=== PATIENT | female | born 2000 | race Caucasian/White ===

== ENCOUNTER 2019-03-17 08:42 | Emergency (ER) | payer OTHER ==
[2019-03-17 09:34] LABS: #Basophils 0.1 thou/uL (0.0-0.2); #Eosinphils 0.2 thou/uL (0.0-0.7); #Lymphocytes 2.5 thou/uL (1.20-3.40); #Monocytes 0.3 thou/uL (0.11-0.59); #Neutrophils 5.3 thou/uL (1.40-6.50); %Basophils 0.9 % (0.0-1.0); %Lymphocytes 29.5 % (28.0-48.0); %Neutrophils 62.6 % (31.0-61.0); Hemoglobin 12.8 g/dL (12.0-16.0); Mean Corpuscular HGB CONC 33.7 g/dL (32.0-36.0); Mean Corpuscular Hemoglobin 29.5 pg (25.0-35.0); Mean Corpuscular Volume 87.5 fL (78.0-98.0); Mean Platelet Volume 7.2 fL (7.4-10.4); Platelet Count 344 thou/uL (130-400); Red Blood Cell (RBC) Count 4.34 mill/uL (4.00-5.20); White Blood Cell (WBC) Count 8.4 thou/uL (4.8-10.8)
[2019-03-17 09:55] LABS: ALT (SGPT) 10 U/L (8-55); AST (SGOT) 14 U/L (5-34); Albumin 4.2 g/dL (3.5-5.0); Alkaline Phosphatase 45 U/L (40-150); Anion Gap 11 mmol/L (10-20); BUN (Urea Nitrogen) 10 mg/dL (7.0-18.7); Bilirubin, Total 0.5 mg/dL (0.2-1.2); Calc. Creatinine Clearance 0 mL/min (70-130); Calcium 9.4 mg/dL (7.8-10.44); Carbon Dioxide 24 mmol/L (22-29); Chloride 105 mmol/L (98-107); Estimated GFR-MDRD Greater than 90; Globulin 3.4 g/dL (2.4-3.5); Glucose 90 mg/dL (70-105); Lipase 10 U/L (8-78); Potassium 4.2 mmol/L (3.5-5.1); Protein, Total 7.6 g/dL (6.0-8.3); Sodium 136 mmol/L (136-145)
[2019-03-17 11:34] LABS: Bilirubin Negative (Negative); Blood, Urine Negative (Negative); Clarity TURBID (Clear); Glucose, Urine (Dipstick) Negative (Negative); Leukocyte Trace (Negative); Nitrite Negative (Negative); Protein, Urine (Dipstick) Negative (Neg-Trace); Specific Gravity, Urine 1.014 (1.002-1.036); Urobilinogen 0.2 mg/dL (0.2-1.0); pH, Urine 7.5 (5.0-9.0)
[2019-03-17 11:37] LABS: Pathc Cast-AUWi Flag 2.04 (0-2.49)
[2019-03-17 11:52] LABS: Bacteria/HPF Rare-Few HPF (None Seen); Crystals/HPF 2+ AMORPH PHOS HPF (Negative); Hyaline Casts/LPF 0-3 HYALINE CAST LPF (0-3 Hyaline); RBC/HPF 0-3 HPF (0-3)
[2019-03-17] MEDS ORDERED: Ondansetron PF 4 MG/2 ML Vial ONE (12:24)
== END 2019-03-17 12:26 | disposition home or self-care (01) ==
LOC: ERS 08:42
DX: O21.9 Vomiting of pregnancy, unspecified (principal); O23.41 Unspecified infection of urinary tract in pregnancy, first trimester; O99.511 Diseases of the respiratory system complicating pregnancy, first trimester; J45.909 Unspecified asthma, uncomplicated; O99.341 Other mental disorders complicating pregnancy, first trimester; F90.9 Attention-deficit hyperactivity disorder, unspecified type; Z3A.12 12 weeks gestation of pregnancy
CPT/HCPCS: 80053; 81003; 81015; 83690; 85025; 87086; 96360; 96361; J2405

== ENCOUNTER 2019-07-09 02:49 | Day surgery (SDC) | payer OTHER ==
[2019-07-09 03:12] VITALS: BMI 25.2
[2019-07-09] MEDS ORDERED: hydrALAZINE 20 MG/ML VIAL SLOW IVP PRN (03:37)
--- NOTE | 2019-07-11 12:50 | PRG ---
DATE OF SERVICE: OB ENCOUNTER: PRIMARY OB: Ezekiel Worrell MD CHIEF COMPLAINT: Vaginal bleeding and pelvic pressure. HISTORY OF PRESENT ILLNESS: The patient is a 18-year-old G2, P1 female with an intrauterine at 29 weeks and 2 days, who is presenting to Labor and Delivery after having intercourse. She reports that she is having some light bleeding and pelvic pressure, which prompted her to come for evaluation and concern. The patient reports she has had a couple of contractions also, one just that she got here, lasting about 30 seconds. The patient denies any other complications with this . Her last ended in a term delivery requiring induction of labor. The patient denies any other trauma or fall. She denies any recent illness, fever, cough, headache, chest pain or shortness of breath. She reports some nausea. Denies vomiting. Denies diarrhea or constipation. Denies any new rashes, hip problems, knee problems or muscle weakness. Denies any change in discharge other than a slight spotting. Denies urinary urgency or frequency. PAST MEDICAL HISTORY: Asthma and ADHD. PAST SURGICAL HISTORY: [place] teeth extraction. SOCIAL HISTORY: Denies drug, alcohol or tobacco use. ALLERGIES: SULFA DRUGS. CURRENT MEDICATIONS: vitamins. OB LABS: Unavailable at time of dictation. REVIEW OF SYSTEMS: Per HPI. PHYSICAL EXAMINATION: VITAL SIGNS: Blood pressure 118/67, heart rate 98, and respiratory rate 18. GENERAL: She appears to be in no acute distress. She is alert, oriented, cooperative, and pleasant to interact with. HEAD: Normocephalic and atraumatic. LUNGS: Clear to auscultation bilaterally. HEART: Regular rate and rhythm. ABDOMEN: Gravid and soft. EXTREMITIES: Nontender and nonedematous. : Vulva is without masses, lesions or erythema. Vestibular region, she has what appears to be very small laceration of the urethra with a very small blood clot present and hemostatic. Vaginal canal on sterile speculum exam has some minimal blood-stained fluid. Cervix is visibly closed and full without any visible lesions or bleeding. heart tracing shows the fetus in the 130s with moderate long-term variability, positive 15 x 15 accelerations. Tocometer shows some irritability, but no contraction pattern. ASSESSMENT AND PLAN: The patient is a 18-year-old, G2, P1 female with an intrauterine at 29 weeks and 2 days, presenting after intercourse to Labor and Delivery with spotting and a couple of contractions, concerned for complications. There is no evidence of abruption or labor or other concerning complications at this time. The patient has been given reassurance and is being discharged to home. The patient has an appointment with her primary OB next week. Job ID: [id number]
== END 2019-07-09 04:05 | disposition home or self-care (01) ==
LOC: L&D/OP 02:49
PROVIDERS: ATTEND Obstetrics & Gynecology
DX: O26.853 Spotting complicating pregnancy, third trimester (principal); O47.03 False labor before 37 completed weeks of gestation, third trimester; O99.513 Diseases of the respiratory system complicating pregnancy, third trimester; J45.909 Unspecified asthma, uncomplicated; O99.343 Other mental disorders complicating pregnancy, third trimester; F90.9 Attention-deficit hyperactivity disorder, unspecified type; Z88.2 Allergy status to sulfonamides; Z3A.29 29 weeks gestation of pregnancy
CPT/HCPCS: 99282

== ENCOUNTER 2019-08-28 20:03 | Day surgery (SDC) | payer OTHER ==
[2019-08-28 20:44] VITALS: BP 108/60; TEMP 97.9; BMI 25.4
[2019-08-28] MEDS ORDERED: hydrALAZINE 20 MG/ML VIAL SLOW IVP PRN (21:21)
--- NOTE | 2019-08-28 21:32 | PDOC.LDHP ---
Labor and Delivery H&P Chief complaint: other (Dizziness upon standing) HPI: Patient here for dizziness Patient of Anaid Seen at Bedside at 2130 19 yo at 36 weeks 3 days here for dizziness, during work as a packaging clerk. No LOC, no VB, no LOF, good FM. few irregular CTX yesterday, none now. Review of Systems: complete and as per HPI Current gestational age (weeks): 36 (3) Dating criteria: last menstrual period Grav: 2 Para: 1 OB History Details: 2017 Current complications: none Abnormal US findings: Yes Current medications: pre- vitamins Previous surgical history: none Allergies/Adverse Reactions: Allergies Allergy/AdvReac Type Severity Reaction Status Date / Time Sulfa (Sulfonamide Allergy Verified 07/09/19 03:08 Antibiotics) Social history: none - Physical Exam Vital signs reviewed and normal: yes (108/68 97.9 80 afebrile) General: NAD Heart: RRR Lungs: CTAB Abdomen: gravid Extremeties: no edema FHT: category 1 [place] contractions every: none; irritability - Vaginal Exam cm dilated: 2 Effacement: 25% Station: -3 - Assessment Vasovagal episode by HX due to prolonged standing. No clinical evidence PTL. EGA : 36 weeks. - Plan Plan: observation in L&D (CBC, CMP ordered for eval, FHT is reactive, no evidence acute maternal- issue.)
[2019-08-28 21:41] LABS: Hemoglobin 10.6 g/dL (12.0-16.0); Mean Corpuscular HGB CONC 34.6 g/dL (32.0-36.0); Mean Corpuscular Hemoglobin 29.3 pg (27.0-31.0); Mean Corpuscular Volume 84.7 fL (78.0-98.0); Mean Platelet Volume 7.1 fL (7.4-10.4); Platelet Count 483 thou/uL (130-400); RBC Distribution Width 11.3 % (11.5-14.5); Red Blood Cell (RBC) Count 3.61 mill/uL (4.20-5.40); White Blood Cell (WBC) Count 13.2 thou/uL (4.8-10.8)
[2019-08-28 21:59] LABS: ALT (SGPT) 8 U/L (8-55); AST (SGOT) 15 U/L (5-34); Albumin 3.2 g/dL (3.5-5.0); Alkaline Phosphatase 146 U/L (40-110); Anion Gap 12 mmol/L (10-20); BUN (Urea Nitrogen) 6 mg/dL (7.0-18.7); Bilirubin, Total 0.3 mg/dL (0.2-1.2); Calc. Creatinine Clearance 126 mL/min (70-130); Calcium 8.6 mg/dL (7.8-10.44); Carbon Dioxide 21 mmol/L (22-29); Chloride 106 mmol/L (98-107); Estimated GFR-MDRD Greater than 90; Globulin 3.1 g/dL (2.4-3.5); Glucose 79 mg/dL (70-105); Potassium 3.5 mmol/L (3.5-5.1); Protein, Total 6.3 g/dL (6.0-8.3); Sodium 135 mmol/L (136-145)
== END 2019-08-28 22:30 | disposition home or self-care (01) ==
LOC: L&D/OP 20:03
PROVIDERS: ATTEND Obstetrics & Gynecology
DX: O99.89 Other specified diseases and conditions complicating pregnancy, childbirth and the puerperium (principal); R55 Syncope and collapse; Z3A.36 36 weeks gestation of pregnancy; Z88.2 Allergy status to sulfonamides
CPT/HCPCS: 36415; 80053; 85027; 99283

== ENCOUNTER 2019-08-31 23:28 | Day surgery (SDC) | payer OTHER ==
[2019-09-01 00:10] VITALS: BMI 27.3
[2019-09-01 00:45] VITALS: BP 110/72; TEMP 98.3
[2019-09-01 00:49] LABS: Amnisure Test No Membranes Rupture (No Rupture)
[2019-09-01 00:50] LABS: Amnisure Internal Control QC ACCEPTABLE (ACCEPTABLE)
[2019-09-01] MEDS ORDERED: hydrALAZINE 20 MG/ML VIAL SLOW IVP PRN (00:55)
--- NOTE | 2019-09-01 00:58 | PDOC.LDHP ---
Labor and Delivery H&P HPI: Patient seen at bedside EGA: 37 weeks Here for possible CTX 19 yo s/p meduna visit earlier today with membrane stripping in office. States poss CTX,. unsure if leaking. Good FM. Review of Systems: complete ROS perform,ed and as per HPI Current gestational age (weeks): 37 Dating criteria: last menstrual period Grav: 2 Para: 1 OB History Details: HX Current complications: none Abnormal US findings: No Past Medical History: remote childhood asthma Current medications: none Allergies/Adverse Reactions: Allergies Allergy/AdvReac Type Severity Reaction Status Date / Time Sulfa (Sulfonamide Allergy Verified 07/09/19 03:08 Antibiotics) Social history: none - Physical Exam Vital signs reviewed and normal: yes (110/72) General: NAD Abdomen: gravid Extremeties: no edema FHT: category 1 [place] contractions every: few/irregular - Vaginal Exam cm dilated: 3 (same as in office) Effacement: 50% Station: -1 - Assessment Latent labor, early term - Plan Plan: observation in L&D (2 hr OBS, no gross evidence f LOF but will send . ADDM: negative)
[2019-09-01] MEDS ORDERED: FLU VACC QS2019-20(6MOS UP)/PF 60 MCG/0.5 ML SYRINGE IM ONE (21:00)
== END 2019-09-01 02:30 | disposition home or self-care (01) ==
LOC: L&D/OP 23:28
PROVIDERS: ATTEND Obstetrics & Gynecology
DX: O47.1 False labor at or after 37 completed weeks of gestation (principal); Z3A.37 37 weeks gestation of pregnancy; Z88.2 Allergy status to sulfonamides
CPT/HCPCS: 84112; 99284

== ENCOUNTER 2019-09-03 14:31 | Day surgery (SDC) | payer OTHER ==
--- NOTE | 2019-09-03 15:21 | PDOC.FPROB ---
FMR OB H&P: Medications - Current Home Medications: Medication Instructions Recorded Confirmed Type Vit37/Iron/Folic Acid 1 tablet PO DAILY 09/01/19 09/01/19 History [P[place] Chewable Tablet] Allergies/Adverse Reactions: Allergies Allergy/AdvReac Type Severity Reaction Status Date / Time Sulfa (Sulfonamide Allergy Verified 07/09/19 03:08 Antibiotics) FMR OB H&P: A/P Discussion: Date/Time: 09/03/19 1520 PCP: Anaid HPI: Patient thinks she had a wesley a fluid around 1430, continuously leaking since that time. She denies bleeding. Has had contractions every 10 min on and off for last 2 days. Denies bleeding. + movement. Denies intercourse in last 24 hours. Denies EATON, visual changes, SOB, or swelling. History: OB hx: at 37 wks PMH: Asthma PSH: none Meds: PNV All: NKDA Soc Hx: denies smoking, alcohol, drugs Fam Hx: denies downs, congenital defects REVIEW OF SYSTEMS: Gen: no fever, chills, or sweats Neuro: no numbness/tingling, no weakness ENT: denies congestion Eyes: no visual changes Resp: denies cough, no production, no SOB, no wheeze Card: denies chest pain, no palpitations GI: denies nausea, vomiting, diarrhea : no dysuria, no hematuria Skin: no rash, no erythema Psych: denies hx anxiety/depression Vitals: T: 98.0 R: 18 BP:97/66 P:78 at: 98% on RA PHYSICAL EXAMINATION: General: NAD, alert and oriented x3 HEENT: EOMI, normal sclera Neck: Supple. Full ROM. Heart/Cardiovascular System: RRR, Cap refill < 3 seconds, no rub, no murmur Lungs/Respiratory System: clear to auscultation bilaterally. No increased work of breathing. Room air. Abdomen/Gastro-Intestinal System: no abdominal tenderness, normal bowel sounds, Gravid Extremities: Warm extremities. No cyanosis or edema. Neuro: No gross deficits appreciated Psychiatry: Awake, Alert and cooperative with exam Skin: no lesions, no rashes Musculoskeletal: Full ROM A/P: This is a 19 yo here for possible ROM. FHT: 150 baseline, mod variability, no decels, accels present [place]: irregular contractions # R/O ROM - Spec exam shows no pooling - amnisure not sent as intercourse in last 24 hours, pad in place for 1 hour dry - /-1 2 days ago, same today - exam unchanged after 1 hour - D/C home with precautions Addendum - Attending - Attending Attestation Date/Time: 09/03/19 7622 I personally evaluated the patient and discussed the management with Dr. Valdes. at 37 weeks c/o pelvic discomfort and ?LOF with recent intercourse reported. SSE negative, SVE unchanged w/ serial exams. DC home, Dr. Worrell notified. I agree with the History, Examination, Assessment and Plan documented above.
[2019-09-03] MEDS ORDERED: hydrALAZINE 20 MG/ML VIAL SLOW IVP PRN (15:35)
[2019-09-03 16:45] VITALS: BMI 26.5
[2019-09-03 16:48] VITALS: TEMP 98.4
== END 2019-09-03 16:45 | disposition home or self-care (01) ==
LOC: L&D/OP 14:31
PROVIDERS: ATTEND Obstetrics & Gynecology
DX: O47.1 False labor at or after 37 completed weeks of gestation (principal); O99.513 Diseases of the respiratory system complicating pregnancy, third trimester; J45.909 Unspecified asthma, uncomplicated; Z3A.37 37 weeks gestation of pregnancy; Z88.2 Allergy status to sulfonamides; Z79.899 Other long term (current) drug therapy

== ENCOUNTER 2019-09-08 16:14 | Day surgery (SDC) | payer OTHER ==
[2019-09-08 17:38] VITALS: BMI 26.4
[2019-09-08] MEDS ORDERED: hydrALAZINE 20 MG/ML VIAL SLOW IVP PRN (17:42)
[2019-09-08] MEDS ORDERED: Lactated Ringer's 1,000 ML IV SCH ×2 (17:45)
[2019-09-08] MEDS ORDERED: Ondansetron PF 4 MG/2 ML Vial IVP PRN (17:46)
[2019-09-08 18:28] VITALS: BP 102/59; TEMP 98.5
[2019-09-08] MEDS ORDERED: Acetaminophen 500 MG TAB PO PRN (18:37)
[2019-09-08 19:00] LABS: #Basophils 0.1 thou/uL (0.0-0.2); #Eosinphils 0.5 thou/uL (0.0-0.7); #Lymphocytes 3.7 thou/uL (1.20-3.40); #Monocytes 0.8 thou/uL (0.11-0.59); #Neutrophils 8.1 thou/uL (1.40-6.50); %Basophils 0.4 % (0.0-1.0); %Eosinophils 3.7 % (0.0-10.0); %Lymphocytes 28.2 % (21.0-51.0); %Monocytes 5.8 % (0.0-10.0); %Neutrophils 61.9 % (42.0-75.0); Hemoglobin 10.5 g/dL (12.0-16.0); Mean Corpuscular HGB CONC 34.2 g/dL (32.0-36.0); Mean Corpuscular Hemoglobin 29.1 pg (27.0-31.0); Mean Corpuscular Volume 85.1 fL (78.0-98.0); Platelet Count 522 thou/uL (130-400); RBC Distribution Width 11.7 % (11.5-14.5); Red Blood Cell (RBC) Count 3.62 mill/uL (4.20-5.40); White Blood Cell (WBC) Count 13.1 thou/uL (4.8-10.8)
[2019-09-08 19:07] LABS: Bilirubin Negative (Negative); Blood, Urine Negative (Negative); Clarity Turbid (Clear); Glucose, Urine (Dipstick) Normal (Negative); Leukocyte 500 Leu/uL (Negative); Nitrite Negative (Negative); Protein, Urine (Dipstick) Negative (Neg-Trace); Urobilinogen Normal mg/dL (Less than 2)
[2019-09-08 19:10] LABS: Bacteria/HPF 4+ HPF (None Seen); RBC/HPF None Seen HPF (0-3); Squamous Epithelial 0-3 HPF (0-3)
[2019-09-08 19:17] LABS: ALT (SGPT) Less than 7 U/L (8-55); AST (SGOT) 15 U/L (5-34); Albumin 3.1 g/dL (3.5-5.0); Alkaline Phosphatase 172 U/L (40-110); Anion Gap 11 mmol/L (10-20); BUN (Urea Nitrogen) 6 mg/dL (7.0-18.7); Bilirubin, Total 0.2 mg/dL (0.2-1.2); Calc. Creatinine Clearance 128 mL/min (70-130); Calcium 8.6 mg/dL (7.8-10.44); Carbon Dioxide 22 mmol/L (22-29); Chloride 104 mmol/L (98-107); Estimated GFR-MDRD Greater than 90; Glucose 79 mg/dL (70-105); Potassium 4.1 mmol/L (3.5-5.1); Protein, Total 6.1 g/dL (6.0-8.3); Sodium 133 mmol/L (136-145)
--- NOTE | 2019-09-08 20:19 | PRG ---
DATE OF SERVICE: 09/08/2019 PRESENTING COMPLAINT: Nausea, diarrhea, and decreased movement. HISTORY OF PRESENT ILLNESS: Ms. Mingo Cabrera is a 19-year-old, G2, P1 at approximately 38 weeks, who presented with 12 hours of loose stools and nausea. She reports decreased movement over the last few hours, but was feeling the baby move normally earlier today. She denies any leakage of fluid or bleeding. She reports one or two contractions every hour that are not painful, but that she appreciates as a tightness. She is a patient of Dr. Worrell's and was seen earlier this week and noted to be 2 cm in the office per the patient report. The patient denies any medical comorbidities or complications with her thus far. OBSTETRICAL HISTORY: G2, P1. SOCIAL HISTORY: Denies alcohol, tobacco, or drug use. GYNECOLOGIC HISTORY: Sexually active. No history of STI. LMP, December 16, 2018. PAST MEDICAL HISTORY: Significant for depression and asthma. CURRENT MEDICATIONS: Include, 1. Albuterol p.r.n. 2. Bonjesta. 3. CitraNatal. 4. Zofran. Estimated due date is 09/22/2019. REVIEW OF SYSTEMS: Negative except as stated above. PHYSICAL EXAMINATION: VITAL SIGNS: Within normal limits. GENERAL: No acute distress. Alert and oriented. CARDIOVASCULAR: Regular rate. LUNGS: Nonlabored breathing. ABDOMEN: Soft, nontender. No palpable contractions. heart tones, baseline 150s, positive accelerations, no decelerations, moderate variability. Tocometer, uterine irritability. No regular contractions noted. VAGINAL: Performed by the nurse, 3 cm, 70% effaced, -2 station. EXTREMITIES: Move equally. Trace edema at the feet to ankle. PSYCHIATRIC: Appropriate mood and affect. LABORATORY DATA: CBC and CMP are unremarkable. Urinalysis with negative nitrites, negative protein, bacteria present. ASSESSMENT AND PLAN: Ms. Mingo Cabrera is a 19-year-old, G2, P1, at term with suspect viral gastroenteritis. Her symptoms have resolved with IV fluid hydration and Zofran. She was discharged home in good condition with strict labor warnings. The patient is scheduled for an induction with Dr. Worrell next week. Her questions were answered and she was discharged home. Job ID: [id number]
[2019-09-09] MEDS ORDERED: FLU VACC QS2019-20(6MOS UP)/PF 60 MCG/0.5 ML SYRINGE IM ONE (18:15)
== END 2019-09-08 18:45 | disposition home or self-care (01) ==
LOC: L&D/OP 16:14
PROVIDERS: ATTEND Obstetrics & Gynecology
DX: O36.8130 Decreased fetal movements, third trimester, not applicable or unspecified (principal); O99.89 Other specified diseases and conditions complicating pregnancy, childbirth and the puerperium; R19.7 Diarrhea, unspecified; R11.0 Nausea; O99.513 Diseases of the respiratory system complicating pregnancy, third trimester; J45.909 Unspecified asthma, uncomplicated; Z3A.38 38 weeks gestation of pregnancy; Z79.899 Other long term (current) drug therapy
CPT/HCPCS: 36415; 80053; 81001; 85025; J2405

== ENCOUNTER 2019-09-10 23:07 | Inpatient (IN) | payer OTHER ==
[2019-09-11] MEDS ORDERED: Promethazine HCl 25 MG/ML VIAL IM PRN ×2 (02:31→05:55)
[2019-09-11] MEDS ORDERED: Ondansetron PF 4 MG/2 ML Vial IVP PRN ×2 (02:31→05:55)
[2019-09-11] MEDS ORDERED: hydrALAZINE 20 MG/ML VIAL SLOW IVP PRN ×2 (02:31)
[2019-09-11] MEDS ORDERED: Lidocaine 1% (PF) 30 ML VIAL SC PRN (02:31)
[2019-09-11] MEDS ORDERED: NS / Oxytocin 40 units/1000ml 1,000 ML IV PRN (02:31)
[2019-09-11] MEDS: Lactated Ringer's 1,000 ML IV SCH ×3 (02:45→06:45)
[2019-09-11] MEDS ORDERED: Penicillin G Potassium 5 MILL.UNITS in Sodium Chloride 0.9% 100 ML IVPB SCH (02:45)
--- NOTE | 2019-09-11 02:47 | PDOC.LDHP ---
Labor and Delivery H&P Chief complaint: contractions HPI: 19 yo at 38.3wga by LMP/sono here for CTX. Pt. of Dr. Worrell. She denies LOF/VB/VD. No other concerns or complaints at this time. Current gestational age (weeks): 38 (38.3) Due date: 09/22/19 Dating criteria: last menstrual period, first trimester ultrasound OB History Details: 1. 1 term Current complications: none Current medications: pre-alexy vitamins Allergies/Adverse Reactions: Allergies Allergy/AdvReac Type Severity Reaction Status Date / Time Sulfa (Sulfonamide Allergy Verified 09/08/19 18:29 Antibiotics) Social history: none - Physical Exam Vital signs reviewed and normal: yes General: NAD, resting Heart: RRR Lungs: CTAB Abdomen: gravid Extremeties: no edema FHT: category 1 - Vaginal Exam cm dilated: 3 Effacement: 50% Station: -2 - OB Labs Blood type: O RH: positive Antibody Screen: negative HIV: negative RPR: negative (VDRL negative) HEPSAg: negative 1 hour GCT: positive 3 hour GTT: negative GBS: positive Rubella: immune Additional Labs: GCC negative - Assessment L&D Assessment: term patient in labor - Plan Plan: admit to L&D -: 19 yo in term labor 1. Term, sIUP -sono, vertex -/-2 to /-2 -FHT: Cat I -[place]: Uterine irritability -Cervix favoriable 2. GBS + -PCN 5mIU loading dose then subsequent 2mIU q4 hours 3. Glucose intolerant -Failed 1hr, passed [address] Lee
[2019-09-11 03:28] LABS: Hemoglobin 11.5 g/dL (12.0-16.0); Mean Corpuscular HGB CONC 33.9 g/dL (32.0-36.0); Mean Corpuscular Hemoglobin 28.7 pg (27.0-31.0); Mean Corpuscular Volume 84.6 fL (78.0-98.0); Mean Platelet Volume 7.6 fL (7.4-10.4); Platelet Count 576 thou/uL (130-400); Red Blood Cell (RBC) Count 4.01 mill/uL (4.20-5.40)
[2019-09-11 03:43] VITALS: BMI 26.9
[2019-09-11 04:13] LABS: HBSAg Index 0.12 S/CO (0-0.99); Hep B Surf Ag Non-Reactive S/CO (NonReactive)
[2019-09-11] MEDS: Penicillin G 2.5 MILL.units 2.5 MILL.UNITS in Premix Bag 1 BAG IVPB SCH ×2 (04:26→09:51)
[2019-09-11] MEDS: NS w/ Oxytocin 10 units 500 ML IV SCH (04:26)
[2019-09-11 04:34] LABS: Syphilis Antibody Nonreactive (Nonreactive); Syphilis Antibody Index 0.07 S/CO (<1.00 Non-Reactive)
[2019-09-11 04:36] LABS: #Basophils 0.1 thou/uL (0.0-0.2); #Eosinphils 0.3 thou/uL (0.0-0.7); #Lymphocytes 4.4 thou/uL (1.20-3.40); #Monocytes 0.8 thou/uL (0.11-0.59); #Neutrophils 15.2 thou/uL (1.40-6.50); %Basophils 0.6 % (0.0-1.0); %Eosinophils 1.6 % (0.0-10.0); %Lymphocytes 21.2 % (21.0-51.0); %Neutrophils 72.6 % (42.0-75.0); Hemoglobin 11.5 g/dL (12.0-16.0); Mean Corpuscular HGB CONC 32.9 g/dL (32.0-36.0); Mean Corpuscular Hemoglobin 27.9 pg (27.0-31.0); Mean Corpuscular Volume 84.8 fL (78.0-98.0); Mean Platelet Volume 7.7 fL (7.4-10.4); Platelet Count 589 thou/uL (130-400); Red Blood Cell (RBC) Count 4.13 mill/uL (4.20-5.40); White Blood Cell (WBC) Count 20.9 thou/uL (4.8-10.8)
[2019-09-11 05:10] LABS: #Basophils 0.1 thou/uL (0.0-0.2); #Eosinphils 0.3 thou/uL (0.0-0.7); #Lymphocytes 4.4 thou/uL (1.20-3.40); #Monocytes 0.9 thou/uL (0.11-0.59); #Neutrophils 16.2 thou/uL (1.40-6.50); %Basophils 0.6 % (0.0-1.0); %Eosinophils 1.5 % (0.0-10.0); %Lymphocytes 19.9 % (21.0-51.0); %Monocytes 4.2 % (0.0-10.0); %Neutrophils 73.7 % (42.0-75.0); Mean Corpuscular HGB CONC 33.6 g/dL (32.0-36.0); Mean Corpuscular Hemoglobin 28.6 pg (27.0-31.0); Mean Platelet Volume 7.2 fL (7.4-10.4); Platelet Count 557 thou/uL (130-400); RBC Distribution Width 11.9 % (11.5-14.5); Red Blood Cell (RBC) Count 3.87 mill/uL (4.20-5.40); White Blood Cell (WBC) Count 21.9 thou/uL (4.8-10.8)
[2019-09-11] MEDS ORDERED: FLU VACC QS2019-20(6MOS UP)/PF 60 MCG/0.5 ML SYRINGE IM ONE (05:15)
[2019-09-11 05:49] LABS: HIV (1/2) Antibody/Antigen Non-Reactive (NonReactive); HIV 1/2 INDEX 0.06 S/CO (<1.00)
[2019-09-11] MEDS ORDERED: ePHEDrine/0.9% NaCl/PF SYRINGE 50 mg/10 ml SLOW IVP PRN (05:55)
[2019-09-11] MEDS ORDERED: Naloxone HCl 0.4 mg/ml Vial IVP PRN ×2 (05:55)
[2019-09-11] MEDS ORDERED: diphenhydrAMINE 50 MG/ML VIAL IVP PRN (05:55)
[2019-09-11] MEDS ORDERED: Lactated Ringer's 500 ML IV PRN (05:55)
[2019-09-11] MEDS ORDERED: Acetaminophen 325 MG TAB PO PRN (05:55)
[2019-09-11] MEDS: Fentanyl 4 mcg/Bup 0.1% Cadd 100 ML ONE ×2 (05:57→06:06)
[2019-09-11] MEDS ORDERED: Communication Order-Pharmacy FS SCH (06:00)
[2019-09-11] MEDS ORDERED: Fentanyl 4 mcg/Bupivacaine 0.1% Cassette 100 ML EPIDURAL SCH (06:00)
--- NOTE | 2019-09-11 07:38 | PDOC.LDPN ---
Labor & Delivery Progress Note - Subjective Subjective: comfortable - Objective Vital signs reviewed and normal: yes General: NAD Uterine fundus: non tender Dilation: 5 Effacement: 75% Station: -1 FHT: category 1 [place] contractions every: 2-4min AROM: bloody fluid Plan: continue plan of care -: 19 yo in term labor 1. Term, sIUP -sono, vertex -/-1 -FHT: Cat I -[place]: 2-3min with no pit 2. GBS + -received PCN loading dose, next due at 0830 3. Glucose intolerant -Failed 1hr, passed 3 hr Discussed w/ Dr. Lee
[2019-09-11] MEDS ORDERED: ePHEDrine/0.9% NaCl/PF SYRINGE 50 mg/10 ml ONE (11:11)
[2019-09-11] MEDS ORDERED: Bupivacaine HCl 0.25%/Epi 0.0005/PF 10 ML VIAL FS ONE (11:11)
--- NOTE | 2019-09-11 11:48 | PDOC.OPDEL ---
OB Operative/Delivery Note Delivery Dr/Surgeon: Talat Forrester Procedure/Post Delivery Dx: spontaneous vaginal delivery Anesthesia: epidural - Additional Findings/Plan Placenta delivered: spontaneous Repaired Obstetrical Laceration: none Estimated blood loss: 50 Compilations/Other Findings: Vaginal Delivery Dictation Guideline Delivering Physician: Talat Forrester Attending: [place] Procedure: Spontaneous Vaginal Delivery Anesthesia: epidural, Local for Repair EBL: 50 ml Pre-op Diagnosis: 1. Term intrauterine in labor Post-op Diagnosis: 1. Term intrauterine , delivered Indications: A 19y/o female presents in latent labor Delivery Note: This is 19yo F @ 38.3 wks who delivered a viable M infant at 1116. Following an uneventful antepartum course, a vigorous M was delivered over an intact perineum in the occipitoanterior position. Anterior Shoulder and then remainder of the body delivered. Loose arm cord. Cord clamped and cut and cord blood collected. Placenta delivered intact in the [place] presentation with a 3 vessel cord noted. Fundal massage was performed and the fundus was firm. The cervix and vagina were inspected and found to be free of lacerations. went to nursery in good condition for routine care. Apgars were 9 /9 at 1 & 5 minutes, respectively. Patient tolerated delivery well and went to after routine recovery care. Phoebe Gilliland MD, PGY2 Attending Note: I was present and participated in the above documented procedure. Patient with uncomplicated . Male . No lacerations. Transferred to for routine care. Care also transferred back to hospitalist group. ABrayUT Post delivery plan: routine recovery
[2019-09-11] MEDS ORDERED: Ibuprofen 800 MG TAB ONE (14:33)
[2019-09-11] MEDS ORDERED: Lanolin Ointment 7 GM TUBE TOP PRN (14:34)
[2019-09-11] MEDS ORDERED: Bisacodyl 10 MG SUPP PR PRN (14:34)
[2019-09-11] MEDS ORDERED: Benzocaine-Menthol 82.5 ML CAN TOP PRN (14:34)
[2019-09-11] MEDS ORDERED: Misoprostol 200 MCG TAB VAG PRN (14:34)
[2019-09-11] MEDS ORDERED: Milk Of Magnesia 30 ML UDCUP PO PRN (14:34)
[2019-09-11] MEDS ORDERED: Methylergonovine 0.2 MG/ML VIAL IM PRN (14:34)
[2019-09-11] MEDS ORDERED: diphenhydrAMINE 25 MG CAP PO PRN (14:34)
[2019-09-11] MEDS ORDERED: Zolpidem Tartrate 5 MG TAB PO PRN (14:34)
[2019-09-11] MEDS: Ferrous Sulfate 325 MG TAB PO SCH (18:33)
[2019-09-11] MEDS ORDERED: Acetaminophen/Codeine 30-300mg Tablet PO PRN (18:57)
[2019-09-11] MEDS: Acetaminophen/Codeine 30-300mg Tablet PO PRN (19:10)
[2019-09-11] MEDS: Ibuprofen 800 MG TAB PO SCH ×2 (19:11→21:43)
[2019-09-11] MEDS: Docusate Calcium (SURFAK) 240 MG CAP PO SCH (21:43)
[2019-09-12] MEDS: Acetaminophen/Codeine 30-300mg Tablet PO PRN ×2 (02:10→20:08)
--- NOTE | 2019-09-12 04:51 | PDOC.PP ---
Post Progress Note Post Day #: PPD#1 Subjective: Resting, no c/o. PO intake tolerated: yes Flatus: yes Ambulation: yes Vital Signs (12 hours) Temp Pulse Resp BP Pulse Ox 09/12/19 00:35 97.5 F L 63 18 103/54 L 98 09/11/19 20:10 97.9 F 60 18 98/54 L 99 09/11/19 17:45 98.5 F 69 18 122/70 Weight Weight 62.596 kg - Physical Examination General: NAD Respiratory: non-labored breathing Neurological: no gross focal deficits Psychiatric: normal affect Result Diagrams: 09/11/19 05:03 Additional Labs: Post Labs Blood Type O POSITIVE 09/11/19 04:07 Hep Bs Antigen Non-Reactive S/CO (NonReactive) 09/11/19 03:10 - Assessment/Plan Doing well s/p . +GBS, tx. x 2 doses. H/o of elevated WBC and plts on admit- repeat CBC this AM.
[2019-09-12] MEDS: Ibuprofen 800 MG TAB PO SCH ×3 (05:05→21:51)
[2019-09-12 05:25] LABS: #Basophils 0.1 thou/uL (0.0-0.2); #Eosinphils 0.4 thou/uL (0.0-0.7); #Lymphocytes 5.2 thou/uL (1.20-3.40); #Monocytes 1.1 thou/uL (0.11-0.59); #Neutrophils 12.7 thou/uL (1.40-6.50); %Basophils 0.5 % (0.0-1.0); %Lymphocytes 26.5 % (21.0-51.0); %Monocytes 5.5 % (0.0-10.0); %Neutrophils 65.5 % (42.0-75.0); Hemoglobin 9.6 g/dL (12.0-16.0); Mean Corpuscular HGB CONC 33.2 g/dL (32.0-36.0); Mean Corpuscular Hemoglobin 27.9 pg (27.0-31.0); Mean Corpuscular Volume 84.3 fL (78.0-98.0); Mean Platelet Volume 7.2 fL (7.4-10.4); Platelet Count 491 thou/uL (130-400); RBC Distribution Width 11.8 % (11.5-14.5); Red Blood Cell (RBC) Count 3.44 mill/uL (4.20-5.40); White Blood Cell (WBC) Count 19.4 thou/uL (4.8-10.8)
[2019-09-12] MEDS: NS w/ Oxytocin 10 units 500 ML IV SCH (07:07)
[2019-09-12] MEDS: Lactated Ringer's 1,000 ML IV SCH ×3 (07:07→18:22)
[2019-09-12] MEDS: Docusate Calcium (SURFAK) 240 MG CAP PO SCH ×2 (09:11→21:51)
[2019-09-12] MEDS: Prenatal Vitamin 1 TAB PO SCH (09:11)
[2019-09-12] MEDS: Penicillin G 2.5 MILL.units 2.5 MILL.UNITS in Premix Bag 1 BAG IVPB SCH (09:11)
[2019-09-12] MEDS: Ferrous Sulfate 325 MG TAB PO SCH ×2 (09:11→20:12)
--- NOTE | 2019-09-12 15:27 | PDOC.EVN ---
Event Note - Event Note Event Note: .Called to room for pt numbness, tingling, vision changes. By the time I arrived pt reports resolution of symptoms. She was worried she was having a stroke. Grandfather had a stroke. Pt reports a mild headache. Currently denies tingling, vision changes, weakness. vital signs reviewed and wnl. 122/82 97.8 78 16 99% on room air. Pt in no acute distress. no numbness to palpation of hands, arms, face. no facial drooping, no speech slurring. eyes with eomi s. Reassurance given. PT to report if headache worsens or symptoms return
[2019-09-13] MEDS: Lactated Ringer's 1,000 ML IV SCH (05:19)
[2019-09-13] MEDS: NS w/ Oxytocin 10 units 500 ML IV SCH (05:20)
[2019-09-13] MEDS: Ibuprofen 800 MG TAB PO SCH (05:21)
[2019-09-13 07:55] LABS: #Basophils 0.1 thou/uL (0.0-0.2); #Eosinphils 0.6 thou/uL (0.0-0.7); #Lymphocytes 4.8 thou/uL (1.20-3.40); #Monocytes 0.8 thou/uL (0.11-0.59); #Neutrophils 6.8 thou/uL (1.40-6.50); %Basophils 1.1 % (0.0-1.0); %Eosinophils 4.6 % (0.0-10.0); %Lymphocytes 36.9 % (21.0-51.0); %Monocytes 5.8 % (0.0-10.0); %Neutrophils 51.6 % (42.0-75.0); Hemoglobin 9.8 g/dL (12.0-16.0); MDiff Complete? YES; Mean Corpuscular Hemoglobin 28.2 pg (27.0-31.0); Mean Corpuscular Volume 85.6 fL (78.0-98.0); Mean Platelet Volume 6.7 fL (7.4-10.4); Platelet Count 521 thou/uL (130-400); Platelet Morphology Comment Appears Increased; Polychromasia SLIGHT = 2-3 cells (100X) (0-2/hpf); RBC Distribution Width 11.9 % (11.5-14.5); Red Blood Cell (RBC) Count 3.46 mill/uL (4.20-5.40); White Blood Cell (WBC) Count 13.1 thou/uL (4.8-10.8)
[2019-09-13] MEDS: Docusate Calcium (SURFAK) 240 MG CAP PO SCH (08:05)
[2019-09-13] MEDS: Prenatal Vitamin 1 TAB PO SCH (08:05)
[2019-09-13] MEDS: Ferrous Sulfate 325 MG TAB PO SCH (08:05)
[2019-09-13 11:57] VITALS: BP 102/67; TEMP 97.9
--- NOTE | 2019-09-13 13:56 | DIS ---
DATE OF ADMISSION: 09/11/2019 DATE OF DISCHARGE: 09/13/2019 ADMITTING DIAGNOSES: 1. Intrauterine at 38 weeks. 2. Labor. DISCHARGE DIAGNOSES: 1. Intrauterine at 38 weeks. 2. Labor. PROCEDURE PERFORMED: Term spontaneous vaginal delivery. HOSPITAL COURSE: The patient is a 19-year-old female, who presented to Labor and Delivery with uterine contractions at 38 weeks' gestation and was admitted for labor. Subsequently, resulting in an uncomplicated term spontaneous vaginal delivery. For complete details, please refer to the delivery note. Her course has been fairly uncomplicated. I was called to the room for isolated episode of tingling and vision changes that scared the patient into the idea that she is having a stroke, however, at the time of arrival, symptoms had resolved. Also complicating her course has been an unexplained elevation in her white count at 21,000 on arrival. The patient's white count now on day 2 is 13,000 with no left shift. The patient's platelet count also was quite elevated, which is now coming down. This morning on day 2, the patient reports she is feeling well, having no fever, no complaints, bleeding is slowing down and tolerating a diet and ambulating. PHYSICAL EXAMINATION: VITAL SIGNS: This morning, blood pressure 112/77, temperature 98.1, pulse of 86, respiratory rate of 16, and saturating 100% on room air. GENERAL: She appears to be in no acute distress. She is alert and oriented, cooperative and pleasant to interact with. HEENT: Head is normocephalic, atraumatic. ABDOMEN: Fundus is firm, a little tender to palpation. EXTREMITIES: Nontender, nonedematous. LABORATORY DATA: CBC this morning showed a white count acutely dropping from yesterday to 13,000, hemoglobin 9.8, hematocrit 29.6, and platelets of 521,000. DISCHARGE INSTRUCTIONS: The patient is being discharged to home. She has instructions to follow up with her primary OB, Dr. Ezekiel Worrell in the next few weeks and instructions to seek medical attention sooner if she experiences fever, increasing pain, or bleeding. Job ID: [id number]
== END 2019-09-13 13:35 | disposition home or self-care (01) | DRG 807 ==
LOC: L&D/OP 23:07 → L&D 09-11 03:22 → 3SW 09-11 17:54
PROVIDERS: ADMIT Obstetrics & Gynecology; ATTEND Obstetrics & Gynecology
PROC: 10E0XZZ Delivery of Products of Conception, External Approach (ICD-10-PCS; principal; 2019-09-11)
PROC: 3E02340 Introduction of Influenza Vaccine into Muscle, Percutaneous Approach (ICD-10-PCS; 2019-09-11)
DX: O99.824 Streptococcus B carrier state complicating childbirth (principal); Z37.0 Single live birth; O99.814 Abnormal glucose complicating childbirth; R73.09 Other abnormal glucose; Z3A.38 38 weeks gestation of pregnancy; Z88.2 Allergy status to sulfonamides; Z23 Encounter for immunization; D72.829 Elevated white blood cell count, unspecified; O99.89 Other specified diseases and conditions complicating pregnancy, childbirth and the puerperium
CPT/HCPCS: 36415; 85025; 85027; 85652; 86140; 86780; 86850; 86900; 86901; 87340; 87389; J2540; J3490

== ENCOUNTER 2020-10-11 08:22 | Emergency (ER) | payer OTHER ==
[2020-10-11 09:41] LABS: #Basophils 0.1 thou/uL (0.0-0.2); #Eosinphils 0.2 thou/uL (0.0-0.7); #Lymphocytes 1.7 thou/uL (1.20-3.40); #Monocytes 0.3 thou/uL (0.11-0.59); #Neutrophils 3.5 thou/uL (1.40-6.50); %Eosinophils 3.4 % (0.0-10.0); %Lymphocytes 28.9 % (21.0-51.0); %Monocytes 5.9 % (0.0-10.0); %Neutrophils 60.9 % (42.0-75.0); Hemoglobin 13.9 g/dL (12.0-16.0); Mean Platelet Volume 7.2 fL (7.4-10.4); Platelet Count 375 thou/uL (130-400); RBC Distribution Width 11.4 % (11.5-14.5); Red Blood Cell (RBC) Count 4.78 mill/uL (4.20-5.40); White Blood Cell (WBC) Count 5.7 thou/uL (4.8-10.8)
[2020-10-11] MEDS ORDERED: Promethazine HCl 25 MG/ML VIAL ONE (09:57)
[2020-10-11 10:26] LABS: Bilirubin Negative (Negative); Blood, Urine Negative (Negative); Clarity Clear (Clear); Glucose, Urine (Dipstick) Normal (Negative); Ketone, Urine Negative (Negative); Leukocyte Negative Leu/uL (Negative); Nitrite Negative (Negative); Protein, Urine (Dipstick) Negative (Neg-Trace); Specific Gravity, Urine 1.017 (1.002-1.036); Urobilinogen Normal mg/dL (Less than 2); pH, Urine 7.5 (5.0-9.0)
[2020-10-11 10:27] LABS: CK (CPK) 63 U/L (29-168); Lipase 10 U/L (8-78)
[2020-10-11 12:23] LABS: ALT (SGPT) 7 U/L (8-55); AST (SGOT) 14 U/L (5-34); Albumin 4.5 g/dL (3.5-5.0); Alkaline Phosphatase 52 U/L (40-110); Anion Gap 10 mmol/L (10-20); BUN (Urea Nitrogen) 11 mg/dL (7.0-18.7); Bilirubin, Total 0.4 mg/dL (0.2-1.2); Calc. Creatinine Clearance 0 mL/min (70-130); Calcium 9.2 mg/dL (7.8-10.44); Carbon Dioxide 25 mmol/L (22-29); Chloride 103 mmol/L (98-107); Estimated GFR-MDRD Greater than 90; Globulin 3.5 g/dL (2.4-3.5); Glucose 86 mg/dL (70-105); Potassium 3.8 mmol/L (3.5-5.1); Sodium 134 mmol/L (136-145)
== END 2020-10-11 13:01 | disposition home or self-care (01) ==
LOC: ERS 08:22
DX: O21.0 Mild hyperemesis gravidarum (principal); Z3A.12 12 weeks gestation of pregnancy; O99.511 Diseases of the respiratory system complicating pregnancy, first trimester; J45.909 Unspecified asthma, uncomplicated; O99.341 Other mental disorders complicating pregnancy, first trimester; F90.9 Attention-deficit hyperactivity disorder, unspecified type
CPT/HCPCS: 80053; 81003; 82550; 83690; 84702; 85025; 96374; J2550

== ENCOUNTER 2020-10-18 09:54 | Emergency (ER) | payer OTHER ==
[2020-10-18] MEDS ORDERED: Metoclopramide HCl 10 MG/2 ML VIAL ONE (10:12)
[2020-10-18 10:37] LABS: #Basophils 0.1 thou/uL (0.0-0.2); #Eosinphils 0.2 thou/uL (0.0-0.7); #Lymphocytes 2.3 thou/uL (1.20-3.40); #Monocytes 0.5 thou/uL (0.11-0.59); #Neutrophils 4.7 thou/uL (1.40-6.50); %Basophils 1.1 % (0.0-1.0); %Lymphocytes 29.9 % (21.0-51.0); %Monocytes 6.1 % (0.0-10.0); %Neutrophils 59.9 % (42.0-75.0); Hemoglobin 13.3 g/dL (12.0-16.0); Mean Corpuscular HGB CONC 34.3 g/dL (32.0-36.0); Mean Corpuscular Volume 87.6 fL (78.0-98.0); Platelet Count 346 thou/uL (130-400); RBC Distribution Width 11.4 % (11.5-14.5); Red Blood Cell (RBC) Count 4.42 mill/uL (4.20-5.40); White Blood Cell (WBC) Count 7.8 thou/uL (4.8-10.8)
[2020-10-18 10:58] LABS: ALT (SGPT) 7 U/L (8-55); AST (SGOT) 14 U/L (5-34); Albumin 4.1 g/dL (3.5-5.0); Alkaline Phosphatase 49 U/L (40-110); Anion Gap 11 mmol/L (10-20); BUN (Urea Nitrogen) 11 mg/dL (7.0-18.7); Bilirubin, Total 0.6 mg/dL (0.2-1.2); Calc. Creatinine Clearance 0 mL/min (70-130); Calcium 8.8 mg/dL (7.8-10.44); Carbon Dioxide 22 mmol/L (22-29); Chloride 105 mmol/L (98-107); Estimated GFR-MDRD Greater than 90; Globulin 3.3 g/dL (2.4-3.5); Glucose 84 mg/dL (70-105); Potassium 3.9 mmol/L (3.5-5.1); Protein, Total 7.4 g/dL (6.0-8.3); Sodium 134 mmol/L (136-145)
[2020-10-18 11:07] LABS: Bilirubin Negative (Negative); Blood, Urine Negative (Negative); Clarity Turbid (Clear); Glucose, Urine (Dipstick) Normal (Negative); Ketone, Urine Negative (Negative); Leukocyte Negative Leu/uL (Negative); Nitrite Negative (Negative); Protein, Urine (Dipstick) Negative (Neg-Trace); Specific Gravity, Urine 1.021 (1.002-1.036); Urobilinogen Normal mg/dL (Less than 2); pH, Urine 7.5 (5.0-9.0)
== END 2020-10-18 12:10 | disposition home or self-care (01) ==
LOC: ERS 09:54
DX: O21.8 Other vomiting complicating pregnancy (principal); O99.891 Other specified diseases and conditions complicating pregnancy; R10.31 Right lower quadrant pain; R10.32 Left lower quadrant pain; O99.511 Diseases of the respiratory system complicating pregnancy, first trimester; J45.909 Unspecified asthma, uncomplicated; O99.341 Other mental disorders complicating pregnancy, first trimester; F90.9 Attention-deficit hyperactivity disorder, unspecified type; Z87.891 Personal history of nicotine dependence; Z3A.10 10 weeks gestation of pregnancy
CPT/HCPCS: 36415; 80053; 81003; 84702; 85025; 87086; 96374; J2765

== ENCOUNTER 2020-11-19 09:13 | Emergency (ER) | payer OTHER ==
[2020-11-19 10:39] LABS: Bilirubin Negative (Negative); Blood, Urine Negative (Negative); Glucose, Urine (Dipstick) Negative (Negative); Ketone, Urine Negative (Negative); Leukocyte Negative (Negative); Nitrite Negative (Negative); Protein, Urine (Dipstick) Negative (Neg-Trace); Urobilinogen 0.2 mg/dL (Less than 2)
[2020-11-19 10:45] LABS: Clarity Clear (Clear)
[2020-11-19 14:49] LABS: SARS-CoV-2 MS2 Positive; SARS-CoV-2 N Gene Positive; SARS-CoV-2 S Gene Positive; SARS-CoV-2 by NAA DETECTED (NotDetected); SARS-CoV-2 orf1ab Positive
== END 2020-11-19 11:05 | disposition home or self-care (01) ==
LOC: ERS 09:13
DX: O98.512 Other viral diseases complicating pregnancy, second trimester (principal); U07.1 COVID-19; O99.342 Other mental disorders complicating pregnancy, second trimester; F90.9 Attention-deficit hyperactivity disorder, unspecified type; Z87.891 Personal history of nicotine dependence; Z3A.15 15 weeks gestation of pregnancy
CPT/HCPCS: 81003; 87635; 87804; 99284; U0003

== ENCOUNTER 2020-12-21 09:36 | Emergency (ER) | payer OTHER ==
[2020-12-21 10:55] LABS: #Basophils 0.1 thou/uL (0.0-0.2); #Eosinphils 0.2 thou/uL (0.0-0.7); #Monocytes 0.3 thou/uL (0.11-0.59); #Neutrophils 6.1 thou/uL (1.40-6.50); %Basophils 0.7 % (0.0-1.0); %Eosinophils 2.4 % (0.0-10.0); %Lymphocytes 23.2 % (21.0-51.0); %Monocytes 3.9 % (0.0-10.0); %Neutrophils 69.9 % (42.0-75.0); Hemoglobin 11.2 g/dL (12.0-16.0); Mean Corpuscular HGB CONC 33.6 g/dL (32.0-36.0); Mean Corpuscular Volume 89.4 fL (78.0-98.0); Mean Platelet Volume 7.3 fL (7.4-10.4); Platelet Count 311 thou/uL (130-400); RBC Distribution Width 11.9 % (11.5-14.5); Red Blood Cell (RBC) Count 3.73 mill/uL (4.20-5.40); White Blood Cell (WBC) Count 8.8 thou/uL (4.8-10.8)
--- NOTE | 2020-12-21 11:21 | ULT ---
EXAM: US OB Ltd PROVIDED CLINICAL HISTORY: Assess TONJA COMPARISON: None FINDINGS: Limited sonographic interrogation of the gravid uterus was performed to assess amniotic fluid index, measuring 8.6 cm. IMPRESSION: As above.
[2020-12-21 11:45] LABS: ALT (SGPT) Less than 7 U/L (8-55); AST (SGOT) 11 U/L (5-34); Albumin 3.6 g/dL (3.5-5.0); Alkaline Phosphatase 44 U/L (40-110); Anion Gap 11 mmol/L (10-20); BUN (Urea Nitrogen) 7 mg/dL (7.0-18.7); Bilirubin, Total 0.2 mg/dL (0.2-1.2); Calc. Creatinine Clearance 0 mL/min (70-130); Calcium 8.3 mg/dL (7.8-10.44); Carbon Dioxide 22 mmol/L (22-29); Chloride 106 mmol/L (98-107); Glucose 83 mg/dL (70-105); Potassium 4.1 mmol/L (3.5-5.1); Protein, Total 6.6 g/dL (6.0-8.3); Sodium 135 mmol/L (136-145)
[2020-12-21 12:50] LABS: Amnisure Test No Membranes Rupture (No Rupture)
[2020-12-21 12:51] LABS: Amnisure Internal Control QC ACCEPTABLE (ACCEPTABLE)
[2020-12-25 21:58] LABS: Chlamydia by PCR Not Detected (NotDetected); GC by PCR Not Detected (NotDetected)
== END 2020-12-21 13:41 | disposition home or self-care (01) ==
LOC: ERS 09:36 → L&D/OP 09:36 → ERS 09:36 → EDSTATUS 09:46 → ERS 13:41
DX: O20.9 Hemorrhage in early pregnancy, unspecified (principal); O99.512 Diseases of the respiratory system complicating pregnancy, second trimester; J45.909 Unspecified asthma, uncomplicated; Z87.891 Personal history of nicotine dependence; Z3A.19 19 weeks gestation of pregnancy; Z79.899 Other long term (current) drug therapy
CPT/HCPCS: 36415; 76815; 80053; 84112; 85025; 86900; 86901; 87480; 87491; 87510; 87591; 87660